=== PATIENT | male | born 1940 | race Asian ===

== ENCOUNTER 2017-07-11 14:25 | Inpatient (IN) | payer MEDICARE, OTHER ==
[2017-07-11] MEDS: NEOMYC/POLYMYX/BACIT 30 GM OINT TOP (15:00)
[2017-07-11 15:28] LABS: ADD MAN DIFF? NO
[2017-07-11 15:29] LABS: ABNORMAL IP MESSAGE 1; HEMATOCRIT 25.6 % (42.0-52.0); HEMOGLOBIN 9.1 g/dl (14.0-18.0); LYMPHOCYTES # 0.4 10^3/ul (0.8-2.9); LYMPHOCYTES % 3.8 % (15.0-51.0); MEAN CORPUSCULAR HEMOGLOBIN 31.4 pg (29.0-33.0); MEAN CORPUSCULAR HGB CONC 35.5 g/dl (32.0-37.0); MEAN CORPUSCULAR VOLUME 88.3 fl (82.0-101.0); MEAN PLATELET VOLUME 10.6 fl (7.4-10.4); MONOCYTE # 0.4 10^3/ul (0.3-0.9); MONOCYTES % 3.8 % (0.0-11.0); NEUTROPHIL # 8.9 10^3/ul (1.6-7.5); NEUTROPHILS % 91.9 % (39.0-77.0); PLATELET COUNT 147 10^3/UL (140-415); POSITIVE DIFF @See below; RED CELL DISTRIBUTION WIDTH 12.7 % (11.5-14.5)
[2017-07-11 15:29] LABS: WHITE BLOOD COUNT 9.7 10^3/ul (4.8-10.8)
[2017-07-11 15:35] LABS: ALANINE AMINOTRANSFERASE 46 IU/L (13-69); ALBUMIN 3.7 g/dl (3.3-4.9); ALBUMIN/GLOBULIN RATIO 1.23; ALKALINE PHOSPHATASE 81 IU/L (42-121); ANION GAP 15 (8-16); ASPARTATE AMINO TRANSFERASE 29 IU/L (15-46); BILIRUBIN,INDIRECT 0.4 mg/dl (0-1.1); BILIRUBIN,TOTAL 0.4 mg/dl (0.2-1.3); BLOOD UREA NITROGEN 32 mg/dl (7-20); CALCIUM 8.9 mg/dl (8.4-10.2); CARBON DIOXIDE 23 mmol/L (21-31); CHLORIDE 93 mmol/L (97-110); CREATININE 1.81 mg/dl (0.61-1.24); GLUCOSE 128 mg/dl (70-220); LIPASE 207 U/L (23-300); POTASSIUM 4.2 mmol/L (3.5-5.1); SODIUM 127 mmol/L (135-144); TOTAL PROTEIN 6.7 g/dl (6.1-8.1)
[2017-07-11 15:48] LABS: TROPONIN-I < 0.012 ng/ml (0.00-0.12)
[2017-07-11] MEDS: morphine 2 MG INJ IV (16:14)
[2017-07-11] MEDS: ONDANSETRON 4 MG INJ IV (16:14)
[2017-07-11] MEDS: DIPHTH/TET/ACEL PERTUSS (ADULT) 0.5 ML VIAL IM* (16:15)
[2017-07-11] MEDS: SOD CHLORIDE 0.9% 1,000 ML IV (16:15)
[2017-07-11 18:00] LABS: ADD UMIC NO; UR ASCORBIC ACID 40 mg/dL (NEGATIVE); UR BILIRUBIN (Dip) NEGATIVE (NEGATIVE); UR BLOOD (Dip) NEGATIVE (NEGATIVE); UR CLARITY SLIGHTLY CLOUDY (CLEAR); UR COLOR YELLOW (YELLOW); UR GLUCOSE (Dip) NEGATIVE (NEGATIVE); UR KETONES (Dip) TRACE mg/dL (NEGATIVE); UR LEUKOCYTE ESTERASE (Dip) NEGATIVE Leu/ul (NEGATIVE); UR NITRITE (Dip) NEGATIVE (NEGATIVE); UR RBC 1 /HPF (0-5); UR SPECIFIC GRAVITY (Dip) 1.005 (1.003-1.030); UR TOTAL PROTEIN (Dip) NEGATIVE (NEGATIVE); UR UROBILINOGEN (Dip) NEGATIVE (NEGATIVE); UR WBC 1 /HPF (0-5)
[2017-07-11] MEDS ORDERED: morphine 2 MG INJ IV (19:30)
[2017-07-11] MEDS ORDERED: ONDANSETRON 4 MG INJ IV (19:30)
[2017-07-11] MEDS ORDERED: NACL 0.9% 3 ML SYG IV (19:30)
[2017-07-11] MEDS ORDERED: CARBIDOPA PO (21:00)
[2017-07-11] MEDS ORDERED: LEVODOPA PO (21:00)
[2017-07-11] MEDS ORDERED: [UNRECOGNIZED DRUG - OTHER] PO (21:00)
[2017-07-11] MEDS ORDERED: ENTACAPONE PO (21:00)
[2017-07-12] MEDS: PANTOPRAZOLE (EC) 40 MG TAB PO ×3 (00:54→18:00)
[2017-07-12] MEDS: FISH OIL 1,000 MG CAP PO ×3 (00:54→20:35)
[2017-07-12] MEDS: CELECOXIB 200 MG CAP PO ×3 (00:54→20:35)
[2017-07-12] MEDS: D5-NS + KCL 20 MEQ 1,000 ML IV ×3 (00:54→15:59)
[2017-07-12] MEDS: IMIPRAMINE 10 MG TAB PO ×3 (02:10→20:37)
[2017-07-12 08:25] LABS: ADD MAN DIFF? NO
[2017-07-12 08:27] LABS: WHITE BLOOD COUNT 5.7 10^3/ul (4.8-10.8)
[2017-07-12 08:27] LABS: BASOPHILS % 0.2 % (0.0-2.0); EOSINOPHILS % 0.4 % (0.0-7.0); HEMATOCRIT 26.8 % (42.0-52.0); HEMOGLOBIN 9.5 g/dl (14.0-18.0); LYMPHOCYTES # 0.9 10^3/ul (0.8-2.9); LYMPHOCYTES % 16.3 % (15.0-51.0); MEAN CORPUSCULAR HEMOGLOBIN 31.1 pg (29.0-33.0); MEAN CORPUSCULAR HGB CONC 35.4 g/dl (32.0-37.0); MEAN CORPUSCULAR VOLUME 87.9 fl (82.0-101.0); MEAN PLATELET VOLUME 9.8 fl (7.4-10.4); MONOCYTE # 0.5 10^3/ul (0.3-0.9); MONOCYTES % 8.4 % (0.0-11.0); NEUTROPHIL # 4.2 10^3/ul (1.6-7.5); NEUTROPHILS % 74.3 % (39.0-77.0); PLATELET COUNT 156 10^3/UL (140-415); RED BLOOD COUNT 3.05 10^6/ul (4.70-6.10); RED CELL DISTRIBUTION WIDTH 12.9 % (11.5-14.5)
[2017-07-12] MEDS ORDERED: NON-FORMULARY/PATIENT OWN MED (Mirabegron (Mybetriq) 25 MG) PO (09:00)
[2017-07-12 09:01] LABS: ANION GAP 10 (8-16); BLOOD UREA NITROGEN 19 mg/dl (7-20); CALCIUM 8.3 mg/dl (8.4-10.2); CARBON DIOXIDE 25 mmol/L (21-31); CHLORIDE 99 mmol/L (97-110); CREATININE 1.18 mg/dl (0.61-1.24); GLUCOSE 131 mg/dl (70-220); MAGNESIUM 2.4 mg/dl (1.7-2.5); PHOSPHORUS 2.8 mg/dl (2.5-4.9); POTASSIUM 3.4 mmol/L (3.5-5.1); SODIUM 131 mmol/L (135-144)
[2017-07-12 09:10] LABS: FREE THYROXINE INDEX (Calc) 3.13 ug/ml (0.65-3.89); T3 UPTAKE 36.4 % (23.5-40.5); T4 (THYROXINE) 8.6 ug/dl (5.5-11.0)
[2017-07-12 09:26] LABS: HEMOGLOBIN A1C 5.6 % (0-5.9)
[2017-07-12] MEDS: CALCIUM CARBONATE 1.25 GM TAB PO (09:37)
[2017-07-12] MEDS: SERTRALINE 50 MG TAB PO (09:37)
[2017-07-12] MEDS: CHOLECALCIFEROL 2,000 UNIT CAP PO (09:37)
[2017-07-12] MEDS: DONEPEZIL 10 MG TAB PO (09:37)
[2017-07-12] MEDS: CLOPIDOGREL 75 MG TAB PO (09:37)
[2017-07-12] MEDS: FERROUS SULFATE (EC) 325 MG TAB PO (09:37)
[2017-07-12] MEDS: MEMANTINE 10 MG TAB PO ×2 (09:37→20:34)
[2017-07-12] MEDS ORDERED: POTASSIUM CHLORIDE 30 MEQ in SOD CHLORIDE 0.9% 150 ML IVPB (12:00)
[2017-07-12] MEDS: POTASSIUM CHLORIDE 30 MEQ in DEXTROSE 5% 250 ML IV (15:59)
[2017-07-12] MEDS: SIMBRINZA BOTH EYES ×2 (15:59→20:35)
[2017-07-12] MEDS: ENTACAPONE 200 MG TAB PO ×2 (16:00→20:34)
[2017-07-12] MEDS: CARBIDOPA/LEVODOPA (25/100) TAB PO ×2 (16:00→20:35)
[2017-07-12] MEDS: TAMSULOSIN (SR) 0.4 MG CAP PO (20:48)
[2017-07-13] MEDS: D5-NS + KCL 20 MEQ 1,000 ML IV ×3 (01:30→20:57)
[2017-07-13] MEDS: PANTOPRAZOLE (EC) 40 MG TAB PO ×3 (05:33→20:56)
[2017-07-13 06:33] LABS: ADD MAN DIFF? NO
[2017-07-13 06:39] LABS: EOSINOPHILS % 0.2 % (0.0-7.0); HEMATOCRIT 26.5 % (42.0-52.0); HEMOGLOBIN 9.3 g/dl (14.0-18.0); LYMPHOCYTES # 0.8 10^3/ul (0.8-2.9); LYMPHOCYTES % 16.3 % (15.0-51.0); MEAN CORPUSCULAR HEMOGLOBIN 30.3 pg (29.0-33.0); MEAN CORPUSCULAR HGB CONC 35.1 g/dl (32.0-37.0); MEAN CORPUSCULAR VOLUME 86.3 fl (82.0-101.0); MEAN PLATELET VOLUME 9.7 fl (7.4-10.4); MONOCYTE # 0.4 10^3/ul (0.3-0.9); MONOCYTES % 7.8 % (0.0-11.0); NEUTROPHIL # 3.8 10^3/ul (1.6-7.5); NEUTROPHILS % 75.3 % (39.0-77.0); PLATELET COUNT 148 10^3/UL (140-415); RED BLOOD COUNT 3.07 10^6/ul (4.70-6.10); RED CELL DISTRIBUTION WIDTH 12.7 % (11.5-14.5)
[2017-07-13 07:12] LABS: ANION GAP 10 (8-16); BLOOD UREA NITROGEN 13 mg/dl (7-20); CALCIUM 8.6 mg/dl (8.4-10.2); CARBON DIOXIDE 23 mmol/L (21-31); CHLORIDE 99 mmol/L (97-110); CREATININE 0.95 mg/dl (0.61-1.24); GLUCOSE 138 mg/dl (70-220); MAGNESIUM 1.9 mg/dl (1.7-2.5); PHOSPHORUS 2.3 mg/dl (2.5-4.9); POTASSIUM 3.7 mmol/L (3.5-5.1); SODIUM 128 mmol/L (135-144)
[2017-07-13] MEDS ORDERED: LORAZEPAM 2 MG INJ IV (10:00)
[2017-07-13] MEDS: CELECOXIB 200 MG CAP PO ×2 (10:12→21:02)
[2017-07-13] MEDS: MEMANTINE 10 MG TAB PO ×2 (10:12→21:40)
[2017-07-13] MEDS: SERTRALINE 50 MG TAB PO (10:12)
[2017-07-13] MEDS: ENTACAPONE 200 MG TAB PO ×3 (10:13→21:02)
[2017-07-13] MEDS: CARBIDOPA/LEVODOPA (25/100) TAB PO ×3 (10:13→20:57)
[2017-07-13] MEDS: CHOLECALCIFEROL 2,000 UNIT CAP PO (10:13)
[2017-07-13] MEDS: CALCIUM CARBONATE 1.25 GM TAB PO (10:13)
[2017-07-13] MEDS: DONEPEZIL 10 MG TAB PO (10:13)
[2017-07-13] MEDS: SIMBRINZA BOTH EYES ×2 (10:14→20:55)
[2017-07-13] MEDS: IMIPRAMINE 10 MG TAB PO ×2 (10:14→20:56)
[2017-07-13] MEDS: FERROUS SULFATE (EC) 325 MG TAB PO (10:14)
[2017-07-13] MEDS: FISH OIL 1,000 MG CAP PO ×2 (10:14→20:56)
[2017-07-13] MEDS: CLOPIDOGREL 75 MG TAB PO (10:14)
[2017-07-13] MEDS: ACETAMINOPHEN 325 MG TAB PO (10:32)
[2017-07-13] MEDS: TAMSULOSIN (SR) 0.4 MG CAP PO (20:56)
[2017-07-14] MEDS: D5-NS + KCL 20 MEQ 1,000 ML IV ×3 (06:22→23:12)
[2017-07-14 09:05] LABS: ADD MAN DIFF? NO
[2017-07-14 09:09] LABS: BASOPHILS % 0.2 % (0.0-2.0); EOSINOPHILS % 0.6 % (0.0-7.0); HEMATOCRIT 26.8 % (42.0-52.0); HEMOGLOBIN 9.5 g/dl (14.0-18.0); LYMPHOCYTES # 0.8 10^3/ul (0.8-2.9); LYMPHOCYTES % 13.9 % (15.0-51.0); MEAN CORPUSCULAR HEMOGLOBIN 30.8 pg (29.0-33.0); MEAN CORPUSCULAR HGB CONC 35.4 g/dl (32.0-37.0); MEAN PLATELET VOLUME 10.1 fl (7.4-10.4); MONOCYTE # 0.4 10^3/ul (0.3-0.9); MONOCYTES % 7.5 % (0.0-11.0); NEUTROPHIL # 4.2 10^3/ul (1.6-7.5); NEUTROPHILS % 77.4 % (39.0-77.0); PLATELET COUNT 151 10^3/UL (140-415); RED BLOOD COUNT 3.08 10^6/ul (4.70-6.10); RED CELL DISTRIBUTION WIDTH 12.6 % (11.5-14.5)
[2017-07-14 09:09] LABS: WHITE BLOOD COUNT 5.5 10^3/ul (4.8-10.8)
[2017-07-14] MEDS: CELECOXIB 200 MG CAP PO ×2 (09:23→21:46)
[2017-07-14] MEDS: IMIPRAMINE 10 MG TAB PO ×2 (09:23→21:46)
[2017-07-14] MEDS: ENTACAPONE 200 MG TAB PO ×3 (09:23→21:46)
[2017-07-14] MEDS: ACETAMINOPHEN 325 MG TAB PO (09:23)
[2017-07-14] MEDS: CHOLECALCIFEROL 2,000 UNIT CAP PO (09:24)
[2017-07-14] MEDS: FERROUS SULFATE (EC) 325 MG TAB PO (09:24)
[2017-07-14] MEDS: DONEPEZIL 10 MG TAB PO (09:24)
[2017-07-14] MEDS: MEMANTINE 10 MG TAB PO ×2 (09:24→21:57)
[2017-07-14] MEDS: FISH OIL 1,000 MG CAP PO ×2 (09:24→21:56)
[2017-07-14] MEDS: CARBIDOPA/LEVODOPA (25/100) TAB PO ×3 (09:24→21:55)
[2017-07-14] MEDS: SERTRALINE 50 MG TAB PO (09:24)
[2017-07-14] MEDS: SIMBRINZA BOTH EYES ×2 (09:24→21:45)
[2017-07-14] MEDS: CLOPIDOGREL 75 MG TAB PO (09:24)
[2017-07-14] MEDS: CALCIUM CARBONATE 1.25 GM TAB PO (09:24)
[2017-07-14 09:29] LABS: IRON 42 ug/dl (35-150)
[2017-07-14 09:35] LABS: ANION GAP 10 (8-16); BLOOD UREA NITROGEN 12 mg/dl (7-20); CALCIUM 8.7 mg/dl (8.4-10.2); CARBON DIOXIDE 23 mmol/L (21-31); CHLORIDE 97 mmol/L (97-110); CREATININE 0.94 mg/dl (0.61-1.24); GLUCOSE 114 mg/dl (70-220); MAGNESIUM 1.7 mg/dl (1.7-2.5); PHOSPHORUS 2.7 mg/dl (2.5-4.9); POTASSIUM 4.2 mmol/L (3.5-5.1); SODIUM 126 mmol/L (135-144)
[2017-07-14 09:38] LABS: % IRON SATURATION 16 % SAT (22-52); TOTAL IRON BINDING CAPACITY 259 ug/dl (241-421)
[2017-07-14] MEDS: PANTOPRAZOLE (EC) 40 MG TAB PO (17:33)
[2017-07-14] MEDS: TAMSULOSIN (SR) 0.4 MG CAP PO (21:57)
[2017-07-15] MEDS: PANTOPRAZOLE (EC) 40 MG TAB PO ×2 (05:09→17:23)
[2017-07-15 06:48] LABS: INR 0.89; PROTIME 12.1 Sec (11.9-14.9); PT RATIO 0.9
[2017-07-15 09:03] LABS: OSMOLALITY 272 mOsm/kg (280-295)
[2017-07-15] MEDS: CLOPIDOGREL 75 MG TAB PO (09:29)
[2017-07-15] MEDS: MEMANTINE 10 MG TAB PO ×2 (09:29→19:52)
[2017-07-15] MEDS: IMIPRAMINE 10 MG TAB PO ×2 (09:29→19:52)
[2017-07-15] MEDS: SERTRALINE 50 MG TAB PO (09:29)
[2017-07-15] MEDS: ENTACAPONE 200 MG TAB PO ×3 (09:30→19:51)
[2017-07-15] MEDS: CARBIDOPA/LEVODOPA (25/100) TAB PO ×3 (09:30→19:56)
[2017-07-15] MEDS: DONEPEZIL 10 MG TAB PO (09:30)
[2017-07-15] MEDS: CELECOXIB 200 MG CAP PO ×2 (09:30→19:53)
[2017-07-15] MEDS: FISH OIL 1,000 MG CAP PO ×2 (09:30→19:51)
[2017-07-15] MEDS: CHOLECALCIFEROL 2,000 UNIT CAP PO (09:31)
[2017-07-15] MEDS: SIMBRINZA BOTH EYES ×2 (09:32→17:23)
[2017-07-15] MEDS: ENOXAPARIN 30 MG/0.3 ML SYG SC (09:42)
[2017-07-15] MEDS: D5-NS + KCL 20 MEQ 1,000 ML IV ×2 (11:32→23:30)
[2017-07-15 14:24] LABS: HEMOGLOBIN A1C 5.7 % (0-5.9)
[2017-07-15 14:36] LABS: OSMOLALITY,URINE 283 mOsm/kg (250-1200)
[2017-07-15 14:46] LABS: THYROID STIMULATING HORMONE 0.828 MIU/L (0.465-4.680)
[2017-07-15 15:07] LABS: RAPID PLASMA REAGIN NONREACTIVE (NR)
[2017-07-15 15:10] LABS: FREE T4 (FREE THYROXINE) 2.09 ng/dl (0.85-1.93)
[2017-07-15 16:02] LABS: TRIIODOTHYRONINE 0.79 ng/ml (0.97-1.69)
[2017-07-15 16:37] LABS: FOLATE 9.7 ng/ml (2.8-20.0)
[2017-07-15] MEDS: TAMSULOSIN (SR) 0.4 MG CAP PO (19:52)
[2017-07-15] MEDS: ACETAMINOPHEN 325 MG TAB PO (19:52)
[2017-07-15] MEDS: [UNRECOGNIZED DRUG - OTHER] XX (23:00)
[2017-07-15] MEDS: MIRABEGRON 25 MG XX (23:00)
[2017-07-16] MEDS: HYDROCODONE/APAP (5/325) TAB PO (02:34)
[2017-07-16] MEDS: PANTOPRAZOLE (EC) 40 MG TAB PO ×2 (05:26→18:00)
[2017-07-16 05:51] LABS: ADD MAN DIFF? NO
[2017-07-16 05:54] LABS: WHITE BLOOD COUNT 4.6 10^3/ul (4.8-10.8)
[2017-07-16 05:54] LABS: BASOPHILS % 0.2 % (0.0-2.0); EOSINOPHILS % 0.9 % (0.0-7.0); HEMOGLOBIN 9.1 g/dl (14.0-18.0); LYMPHOCYTES # 0.9 10^3/ul (0.8-2.9); LYMPHOCYTES % 18.8 % (15.0-51.0); MEAN CORPUSCULAR HEMOGLOBIN 30.5 pg (29.0-33.0); MEAN CORPUSCULAR VOLUME 87.2 fl (82.0-101.0); MEAN PLATELET VOLUME 10.2 fl (7.4-10.4); MONOCYTE # 0.4 10^3/ul (0.3-0.9); NEUTROPHIL # 3.3 10^3/ul (1.6-7.5); NEUTROPHILS % 70.9 % (39.0-77.0); PLATELET COUNT 150 10^3/UL (140-415); RED BLOOD COUNT 2.98 10^6/ul (4.70-6.10); RED CELL DISTRIBUTION WIDTH 12.9 % (11.5-14.5)
[2017-07-16 06:53] LABS: ANION GAP 9 (8-16); BLOOD UREA NITROGEN 20 mg/dl (7-20); CALCIUM 8.7 mg/dl (8.4-10.2); CARBON DIOXIDE 25 mmol/L (21-31); CHLORIDE 98 mmol/L (97-110); CREATININE 1.08 mg/dl (0.61-1.24); GLUCOSE 109 mg/dl (70-220); POTASSIUM 4.3 mmol/L (3.5-5.1); SODIUM 128 mmol/L (135-144)
[2017-07-16] MEDS: MIRABEGRON 25 MG XX ×3 (07:00→22:21)
[2017-07-16] MEDS: [UNRECOGNIZED DRUG - OTHER] XX ×3 (07:00→22:21)
[2017-07-16] MEDS: MEMANTINE 10 MG TAB PO ×2 (08:43→21:07)
[2017-07-16] MEDS: ENTACAPONE 200 MG TAB PO ×3 (08:44→21:07)
[2017-07-16] MEDS: FISH OIL 1,000 MG CAP PO ×2 (08:44→21:07)
[2017-07-16] MEDS: CELECOXIB 200 MG CAP PO ×2 (08:45→21:07)
[2017-07-16] MEDS: CARBIDOPA/LEVODOPA (25/100) TAB PO ×3 (08:45→21:07)
[2017-07-16] MEDS: CLOPIDOGREL 75 MG TAB PO (08:45)
[2017-07-16] MEDS: CHOLECALCIFEROL 2,000 UNIT CAP PO (08:45)
[2017-07-16] MEDS: IMIPRAMINE 10 MG TAB PO ×2 (08:45→21:08)
[2017-07-16] MEDS: SERTRALINE 50 MG TAB PO (08:46)
[2017-07-16] MEDS: SIMBRINZA BOTH EYES ×2 (08:46→14:18)
[2017-07-16] MEDS: DONEPEZIL 10 MG TAB PO (08:51)
[2017-07-16] MEDS: ENOXAPARIN 30 MG/0.3 ML SYG SC (09:04)
[2017-07-16] MEDS: D5-NS + KCL 20 MEQ 1,000 ML IV (14:21)
[2017-07-16] MEDS: TAMSULOSIN (SR) 0.4 MG CAP PO (21:07)
[2017-07-17] MEDS: PANTOPRAZOLE (EC) 40 MG TAB PO (05:55)
[2017-07-17] MEDS: [UNRECOGNIZED DRUG - OTHER] XX (07:00)
[2017-07-17] MEDS: MIRABEGRON 25 MG XX (07:00)
[2017-07-17] MEDS: IMIPRAMINE 10 MG TAB PO ×2 (09:00→09:26)
[2017-07-17] MEDS: CLOPIDOGREL 75 MG TAB PO (09:15)
[2017-07-17] MEDS: CARBIDOPA/LEVODOPA (25/100) TAB PO (09:15)
[2017-07-17] MEDS: CELECOXIB 200 MG CAP PO (09:20)
[2017-07-17] MEDS: MEMANTINE 10 MG TAB PO (09:20)
[2017-07-17] MEDS: FISH OIL 1,000 MG CAP PO (09:20)
[2017-07-17] MEDS: SERTRALINE 50 MG TAB PO (09:21)
[2017-07-17] MEDS: CHOLECALCIFEROL 2,000 UNIT CAP PO (09:21)
[2017-07-17] MEDS: ENTACAPONE 200 MG TAB PO (09:22)
[2017-07-17] MEDS: DONEPEZIL 10 MG TAB PO (09:22)
[2017-07-17] MEDS: SIMBRINZA BOTH EYES (09:32)
[2017-07-17] MEDS: ENOXAPARIN 30 MG/0.3 ML SYG SC (09:45)
== END 2017-07-17 13:14 | DRG 640 ==
LOC: MS1 23:56 → E/R 14:25 → MS1 07-14 22:10 → TEL 17:38
DX: E87.1 Hypo-osmolality and hyponatremia (principal); G93.40 Encephalopathy, unspecified; E86.0 Dehydration; N17.9 Acute kidney failure, unspecified; E44.0 Moderate protein-calorie malnutrition; R55 Syncope and collapse; R62.7 Adult failure to thrive; M48.02 Spinal stenosis, cervical region; D63.8 Anemia in other chronic diseases classified elsewhere; D50.9 Iron deficiency anemia, unspecified; F39 Unspecified mood [affective] disorder; F02.80 Dementia in other diseases classified elsewhere, unspecified severity, without behavioral disturbance, psychotic disturbance, mood disturbance, and anxiety; G31.83 Neurocognitive disorder with Lewy bodies; I10 Essential (primary) hypertension; N32.81 Overactive bladder; S00.81XA Abrasion of other part of head, initial encounter; W01.0XXA Fall on same level from slipping, tripping and stumbling without subsequent striking against object, initial encounter; Z79.02 Long term (current) use of antithrombotics/antiplatelets
CPT/HCPCS: 36415; 70450; 70486; 71010; 72125; 72170; 73090; 73130-RT; 80048; 80053; 81001; 81003; 82306; 82607; 82728; 82746; 83036; 83540; 83690; 83735; 83930; 83935; 84100; 84436; 84439; 84443; 84479; 84480; 84484; 85025; 85610; 86592; 90471; 90715; 93005; 93306; 93880; 96374; 96375; 97110; 97116; 97530; 99285-25